=== PATIENT | male | born 2000 ===

== ENCOUNTER 2023-09-09 14:20 | Outpatient (REF) | payer MEDICAID, SELFPAY ==
[2023-09-10 12:03] LABS: RPR Rapid Plasma Reagin NON-REACTIVE (NON-REACTIVE)
== END 2023-09-09 14:21 | disposition home or self-care (01) ==
LOC: HO.HHCL 14:20
PROVIDERS: Visit Provider Nurse Practitioner Family
DX: R30.9 Painful micturition, unspecified (principal)
CPT/HCPCS: 36415; 86592; 87086; 87536; 87900

== ENCOUNTER 2023-09-11 11:16 | Outpatient (REF) | payer MEDICAID, SELFPAY ==
[2023-09-11 15:21] LABS: CT PCR DETECTED (Not Detect.); NG PCR DETECTED (Not Detect.)
[2023-09-13 14:28] LABS: HIV RNA PCR Qn Copies NOT DETECTED copies/mL (NOT DETECTED); HIV RNA PCR Qn Log Copies NOT DETECTED (NOT DETECTED)
== END 2023-09-11 11:17 | disposition home or self-care (01) ==
LOC: HO.HHCL 11:16
PROVIDERS: Visit Provider Nurse Practitioner Family
DX: R30.9 Painful micturition, unspecified (principal)
CPT/HCPCS: 0353U; 87536